=== PATIENT | female | born 1940 | race Caucasian/White ===

== ENCOUNTER 2020-01-08 09:10 | Emergency (ER) | payer OTHER, MEDICARE ==
[2020-01-08 09:23] VITALS: BP 200/107; PULSE 90; TEMP 98.3; BMI 18.8
--- NOTE | 2020-01-08 09:28 | PDOC ---
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 She reports wrist pain. She denies loss of sensation. Vital signs on arrival are notable for HTN 207/107. Patient denies history of HTN and states her BP is always elevated when she comes to the hospital but is normal otherwise. PMH: None PSH: Left hip repair s/p fall Smoking: None Alcohol: Occasional PCP: Dr. Ravi Moya ([facility], [facility]) Allergies: PCN REVIEW OF SYSTEMS: GENERAL/CONSTITUTIONAL: No fever or chills. No weakness. HEAD, EYES, EARS, NOSE AND THROAT: No change in vision. No change in hearing. No sore throat. CARDIOVASCULAR: Reports chest pain. No shortness of breath. RESPIRATORY: Denies cough, hemoptysis. MUSCULOSKELETAL: See HPI. SKIN: No rash or lesions. NEUROLOGIC: No headache, vertigo, loss of consciousness, or change in strength/sensation. ALLERGIC/IMMUNOLOGIC: No hives or skin allergy. PHYSICAL EXAM: GENERAL: Awake, alert, and oriented to person/place/time, in no acute distress. HEAD: No signs of trauma, normocephalic, atraumatic. EYES: PERRLA, EOMI, sclera anicteric, conjunctiva clear. LUNGS: No distress, speaks in full sentences, clear to auscultation bilaterally. HEART: Regular rate and rhythm, normal S1 and S2, no murmurs appreciated, peripheral pulses normal and equal bilaterally. ABDOMEN: Soft, nontender, normoactive bowel sounds. No guarding, no rebound. No masses. EXTREMITIES: Mild edema and tenderness distal radius, ulna. Normal sensation in fingers. Cap refill <2 sec. NEUROLOGICAL: Cranial nerves II through XII grossly intact. Normal speech, normal gait, no focal sensorimotor deficits. SKIN: Warm, Dry, normal turgor, no rashes or lesions noted. Past History - Medical History Allergies/Adverse Reactions: Allergies Allergy/AdvReac Type Severity Reaction Status Date / Time No Known Allergies Allergy Verified 01/08/20 09:18 - Psycho-Social/Smoking History Smoking History: Never smoked - Substance Abuse Hx (Audit-C & DAST Scrn) How often the patient has a drink containing alcohol: Never Score: In Men: 4 or > Positive; In Women: 3 or > Positive: 0 Screen Result (Pos requires Nsg. Audit-10AR): Negative In the last yr the pt used illegal drug/Rx for NonMed reason: No Score: Yes response is considered Positive: 0 Screen Result (Positive result requires Nsg. DAST-10): Negative *Physical Exam - Vital Signs Last Vital Signs Temp Pulse Resp BP Pulse Ox 98.3 F 90 18 200/107 H 100 01/08/20 09:19 01/08/20 09:19 01/08/20 09:19 01/08/20 09:19 01/08/20 09:19 Procedures - Splinting Splint Location: Left: Wrist Pre-Proc Neuro Vasc Exam: normal Hand-Made Type: orthoglass Splint Type: Yes: Sugar [place] Post-Proc Neuro Vasc Exam: normal Jaime Bandage: 4" Sling: Yes Complications: No Medical Decision Making - Medical Decision Making 01/08/20 10:59 A/P: 79-year-old female with fall onto outstretched left hand. Xray reveals impacted distal radius and ulnar styloid fractures. Splint placed. Toradol given for pain. Ortho followup and return precautions reviewed. Discharge - Discharge Information Problems reviewed: Yes Clinical Impression/Diagnosis: Wrist fracture, left Condition: Stable Disposition: HOME - Admission No - Follow up/Referral Referrals: Ravi Moya [Primary Care Provider] - Onel Benson MD [Staff Physician] - 2 Days Tru Peters MD [Staff Physician] - 2 Days - Patient Discharge Instructions Patient Printed Discharge Instructions: DI for Wrist Fracture Additional Instructions: -You have both a radial and ulnar fracture. -Keep the splint in place and apply ice over it for 15 minutes at a time 4-6 times daily. -Take ibuprofen 400mg every 6 hours with food. -Follow up with one of the two orthopedic surgeons listed here (Dr. Benson or Dr. Peters). -Return to the ER if you lose sensation in your fingers, see sudden color change in your fingers, have uncontrolled pain, or have any other concerns. - Post Discharge Activity
[2020-01-08] MEDS ORDERED: KETOROLAC TROMETHAMINE 30 MG/1 ML VIAL IM ONE (10:09)
[2020-01-08] MEDS ORDERED: KETOROLAC TROMETHAMINE 30 MG/1 ML VIAL ONE (10:15)
== END 2020-01-08 13:33 | disposition home or self-care (01) ==
LOC: JER 09:10
PROC: 2W3DX1Z Immobilization of Left Lower Arm using Splint (ICD-10-PCS; principal; 2020-01-08)
PROC: 3E0233Z Introduction of Anti-inflammatory into Muscle, Percutaneous Approach (ICD-10-PCS; 2020-01-08)
DX: S62.92XA Unspecified fracture of left hand, initial encounter for closed fracture (principal)
CPT/HCPCS: 73110-TC-LT-FY; 73130-TC-LT-FY; 99284-25